=== PATIENT | male | born 1975 | race Caucasian/White ===

== ENCOUNTER 2017-07-18 22:16 | Inpatient (IN) | payer BC ==
[2017-07-18] MEDS: IOHEXOL 300 MG/ML 100ML VIAL. IV (00:12)
[2017-07-18 23:10] LABS: BASO # 0.1 x10^3/uL (0.0-0.2); BASO % 0 % (0-3); EOS % 0 % (0-3); HEMATOCRIT 48.9 % (39.0-53.0); HEMOGLOBIN 16.9 g/dL (13.0-17.5); LYMPH % 7 % (24-48); MEAN CORPUSCULAR HEMOGLOBIN 31 pg (25-35); MEAN CORPUSCULAR HGB CONC 35 g/dL (31-37); MEAN CORPUSCULAR VOLUME 88 fL (79-100); MONO # 0.6 x10^3/uL (0.0-1.1); MONO % 4 % (0-9); NEUT % 89 % (31-73); PLATELET COUNT 326 x10^3/uL (140-400); RED BLOOD COUNT 5.53 x10^6/uL (4.30-5.70); RED CELL DISTRIBUTION WIDTH 13.7 % (11.5-14.5); WHITE BLOOD COUNT 15.7 x10^3/uL (4.0-11.0)
[2017-07-18 23:11] LABS: ADD MAN DIFF? YES
[2017-07-18 23:18] LABS: ANION GAP 12 (6-14); BLOOD UREA NITROGEN 20 mg/dL (8-26); BUN/CREATININE RATIO 15 (6-20); CALCIUM 9.5 mg/dL (8.5-10.1); CARBON DIOXIDE 23 mmol/L (21-32); CHLORIDE 105 mmol/L (98-107); CREATININE 1.3 mg/dL (0.7-1.3); GFR 60.5; GLUCOSE 144 mg/dL (70-99); POTASSIUM 3.6 mmol/L (3.5-5.1); SODIUM 140 mmol/L (136-145)
[2017-07-18] MEDS: fentaNYL PF VIAL 100 MCG/2 ML VIAL IV (23:22)
[2017-07-18] MEDS: ONDANSETRON PF 4 MG/2 ML VIAL. IV (23:22)
[2017-07-18 23:23] LABS: ALBUMIN 4.2 g/dL (3.4-5.0); ALBUMIN/GLOBULIN RATIO 1.1 (1.0-1.7); ALK PHOS 54 U/L (46-116); ALT (SGPT) 65 U/L (16-63); AST (SGOT) 33 U/L (15-37); LIPASE 83 U/L (73-393); TOTAL BILIRUBIN 0.8 mg/dL (0.2-1.0); TOTAL PROTEIN 8.2 g/dL (6.4-8.2)
[2017-07-18] MEDS: IV NORMAL SALINE 1000ML BAG 1,000 ML IV (23:23)
[2017-07-18] MEDS ORDERED: CONTRAST GIVEN MC (23:30)
[2017-07-18 23:46] LABS: % BANDS 1 % (0-9); % LYMPHS 5 % (24-48); % MONOS 2 % (0-10); % SEGS 92 % (35-66); PLT ESTIMATE ADEQUATE (ADEQUATE)
[2017-07-19] MEDS: fentaNYL PF VIAL 100 MCG/2 ML VIAL IV ×3 (01:20→06:16)
[2017-07-19] MEDS: CEFEPIME HCL IV Push 2 GM VIAL. IVP ×2 (02:49→13:34)
[2017-07-19] MEDS: MORPHINE SULFATE 4 MG/ML DISP.SYRIN. IV ×5 (02:49→13:37)
[2017-07-19 03:15] LABS: BILIRUBIN,URINE NEGATIVE (NEG); CLARITY,URINE CLEAR; COLOR,URINE YELLOW; GLUCOSE,URINE NEGATIVE (NEG); NITRITE,URINE NEGATIVE (NEG); PROTEIN,URINE NEGATIVE (NEG-TRACE); UROBILINOGEN,URINE 0.2 mg/dL (0.2 mg/dL)
[2017-07-19 03:22] LABS: BACTERIA,URINE 0 /HPF (0-FEW); WBC,URINE 0 /HPF (0-4)
[2017-07-19] MEDS: ONDANSETRON PF 4 MG/2 ML VIAL. IV (03:43)
[2017-07-19] MEDS ORDERED: CEFEPIME HCL 2 GM in IV DEXTROSE 5% 100 ML IV (06:00)
[2017-07-19] MEDS ORDERED: ACETAMINOPHEN 325 MG TABLET. PO (08:30)
[2017-07-19] MEDS ORDERED: DOCUSATE SODIUM 100 MG CAPSULE. PO (08:30)
[2017-07-19] MEDS ORDERED: traMADol 50 MG TABLET PO (08:30)
[2017-07-19] MEDS ORDERED: hydrALAZINE 20 MG/ML VIAL. IVP (08:30)
[2017-07-19] MEDS ORDERED: ONDANSETRON PF 4 MG/2 ML VIAL. IV ×3 (08:30→18:15)
[2017-07-19] MEDS ORDERED: fentaNYL PF VIAL 100 MCG/2 ML VIAL IV ×3 (08:45→13:45)
[2017-07-19] MEDS ORDERED: ceFAZolin 2GM PREMIX 2 GM/50 ML BAG IV (12:00)
[2017-07-19] MEDS ORDERED: LIDOCAINE 1% PF 2 ML VIAL. ID (13:45)
[2017-07-19] MEDS ORDERED: PROCHLORPERAZINE 10 MG/2 ML VIAL. IV (13:45)
[2017-07-19] MEDS ORDERED: MORPHINE SULFATE 4 MG/ML DISP.SYRIN. IV (13:45)
[2017-07-19] MEDS ORDERED: ROCURONIUM 50 MG/5 ML VIAL. (14:00)
[2017-07-19] MEDS ORDERED: fentaNYL PF VIAL 100 MCG/2 ML VIAL ×2 (14:00→16:17)
[2017-07-19] MEDS ORDERED: PROPOFOL 20 ML IV (14:00)
[2017-07-19] MEDS ORDERED: MIDAZOLAM HCL/PF 2 MG/2 ML VIAL. (14:00)
[2017-07-19] MEDS: ASPIRIN CHEWABLE 81 MG TABLET. PO (15:00)
[2017-07-19] MEDS: PANTOPRAZOLE 40 MG TABLET.DR. PO (15:00)
[2017-07-19] MEDS ORDERED: SURGICEL HEMOSTAT 2X3 EACH. (15:02)
[2017-07-19] MEDS: IV RINGERS,LACTATED 1000ML 1,000 ML IV ×2 (15:10→19:29)
[2017-07-19] MEDS: cefTRIAXone IV Push 1 GM VIAL. IVP (15:15)
[2017-07-19] MEDS ORDERED: DEXAMETHASONE SOD PHOS 20 MG/5 ML VIAL. (16:17)
[2017-07-19] MEDS ORDERED: ONDANSETRON PF 4 MG/2 ML VIAL. (16:17)
[2017-07-19] MEDS: IOHEXOL 300 MG/ML 100ML VIAL. (16:20)
[2017-07-19] MEDS: BISACODYL 10 MG SUPP.RECT. (16:20)
[2017-07-19] MEDS: BUPIVACAINE-EPI 0.25%-1:200000 50 ML VIAL. (16:20)
[2017-07-19] MEDS ORDERED: NEOSTIGMINE 10 MG/10 ML VIAL. (16:39)
[2017-07-19] MEDS ORDERED: GLYCOPYRROLATE 1 MG/5 ML VIAL. (16:39)
[2017-07-19] MEDS ORDERED: SEVOFLURANE 61 TO 120 MINUTES. IH (17:22)
[2017-07-19] MEDS ORDERED: KETOROLAC 30 MG/ML INJ FOR OR. INJ (17:28)
[2017-07-19] MEDS ORDERED: HYDROcodone/APAP 5/325MG 1 TAB TABLET PO (18:15)
[2017-07-19] MEDS ORDERED: DEXTROSE 50% 25 GM / 50ML DISP.SYRIN. IV (18:15)
[2017-07-19] MEDS ORDERED: 0.9 % SODIUM CHLORIDE 10 ML DISP.SYRIN. IV (18:15)
[2017-07-19] MEDS: LACTOBACILLUS RHAMNOSUS GG 1 CAPSULE. PO (21:22)
[2017-07-19] MEDS: DOCUSATE SODIUM 100 MG CAPSULE. PO (21:22)
[2017-07-20] MEDS: IV RINGERS,LACTATED 1000ML 1,000 ML IV ×2 (04:12→14:12)
[2017-07-20 05:35] LABS: ADD MAN DIFF? NO
[2017-07-20 05:37] LABS: BASO # 0.1 x10^3/uL (0.0-0.2); BASO % 0 % (0-3); EOS % 0 % (0-3); HEMATOCRIT 46.7 % (39.0-53.0); HEMOGLOBIN 15.8 g/dL (13.0-17.5); LYMPH # 0.8 x10^3/uL (1.0-4.8); LYMPH % 4 % (24-48); MEAN CORPUSCULAR HEMOGLOBIN 30 pg (25-35); MEAN CORPUSCULAR HGB CONC 34 g/dL (31-37); MEAN CORPUSCULAR VOLUME 88 fL (79-100); MONO # 1.6 x10^3/uL (0.0-1.1); MONO % 8 % (0-9); NEUT # 16.9 x10^3uL (1.8-7.7); NEUT % 87 % (31-73); PLATELET COUNT 282 x10^3/uL (140-400); RED BLOOD COUNT 5.28 x10^6/uL (4.30-5.70); RED CELL DISTRIBUTION WIDTH 13.9 % (11.5-14.5); WHITE BLOOD COUNT 19.4 x10^3/uL (4.0-11.0)
[2017-07-20 05:53] LABS: ANION GAP 8 (6-14); BLOOD UREA NITROGEN 14 mg/dL (8-26); CARBON DIOXIDE 27 mmol/L (21-32); CHLORIDE 105 mmol/L (98-107); CREATININE 1.1 mg/dL (0.7-1.3); GFR 73.4; GLUCOSE 139 mg/dL (70-99); POTASSIUM 4.1 mmol/L (3.5-5.1); SODIUM 140 mmol/L (136-145)
[2017-07-20] MEDS: LACTOBACILLUS RHAMNOSUS GG 1 CAPSULE. PO (09:45)
[2017-07-20] MEDS: PANTOPRAZOLE 40 MG TABLET.DR. PO (09:45)
[2017-07-20] MEDS: DOCUSATE SODIUM 100 MG CAPSULE. PO (09:45)
[2017-07-20] MEDS: ASPIRIN CHEWABLE 81 MG TABLET. PO (09:48)
[2017-07-20] MEDS: cefTRIAXone IV Push 1 GM VIAL. IVP (15:00)
[2017-07-20] MEDS ORDERED: VITAMIN E 200 UNIT CAPSULE. PO (21:00)
== END 2017-07-20 17:00 | disposition home or self-care (01) | DRG 419 ==
LOC: 4 NORTH 07-19 02:32 → ER 22:16
PROC: 0FT44ZZ Resection of Gallbladder, Percutaneous Endoscopic Approach (ICD-10-PCS; principal; 2017-07-19 14:30)
PROC: 0FB00ZX Excision of Liver, Open Approach, Diagnostic (ICD-10-PCS; 2017-07-19 14:30)
PROC: BF101ZZ Fluoroscopy of Bile Ducts using Low Osmolar Contrast (ICD-10-PCS; 2017-07-19 14:30)
DX: K80.00 Calculus of gallbladder with acute cholecystitis without obstruction (principal); E66.01 Morbid (severe) obesity due to excess calories; K76.0 Fatty (change of) liver, not elsewhere classified; K21.9 Gastro-esophageal reflux disease without esophagitis; Z82.49 Family history of ischemic heart disease and other diseases of the circulatory system; Z68.37 Body mass index [BMI] 37.0-37.9, adult
CPT/HCPCS: 36415; 74177; 74300; 76705; 80048; 80053; 81001; 83690; 85007; 85025; 88304; 88307; 88313; 96361; 96374; 96375; 96376; 99285; 99285-25; J0690; J0692; J0696; J1100; J1885; J2250; J2270; J2405; J2704; J2710; J3010; J3490; J7030; J7120; Q9967